=== PATIENT | female | born 1980 | race Two or more races ===

== ENCOUNTER → 2016-06-09 | Outpatient (CLI) | payer OTHER ==
[2016-06-09 11:37] LABS: BASOPHIL % 0.4 % (0-2); PLATELET COUNT 279 x10^3mcL (130-400); RED CELL DISTRIBUTION WIDTH 11.8 % (11.5-14.5)
[2016-06-09 11:38] LABS: UA SPECIFIC GRAVITY 1.025 (1.005-1.035); microscopic required? YES; urine erythrocyte 2+ (NEGATIVE)
[2016-06-09 12:05] LABS: ALBUMIN 3.7 g/dL (3.4-5.0); ALKALINE PHOSPHATASE 109 U/L (46-116); ALT/SGPT 35 U/L (14-59); AST/SGOT 27 U/L (15-37); BILIRUBIN TOTAL 0.33 mg/dL (0.20-1.00); C REACTIVE PROTEIN 0.3 mg/dL (<=0.9); CALCIUM 9.2 mg/dL (8.5-10.1); CARBON DIOXIDE 28.6 mmol/L (21-32); CHLORIDE SERUM 102 mmol/L (98-107); CHOLESTEROL 213 mg/dL (<200); CHOLESTEROL/HDL RATIO 4.8; CREATININE SERUM 0.5 mg/dL (0.6-1.0); FREE T4 1.12 ng/dL (0.76-1.46); GFR1 > 60 mL/min; GLUCOSE SERUM 92 mg/dL (74-106); HDL CHOLESTEROL 44 mg/dL (40-60); POTASSIUM SERUM 3.9 mmol/L (3.5-5.1); SODIUM SERUM 137 mmol/L (136-145); TOTAL PROTEIN, SERUM 8.1 g/dL (6.4-8.2); TRIGLYCERIDES 59 mg/dL (<150)
[2016-06-09 12:16] LABS: T3 TOTAL 1.15 ng/mL
[2016-06-09 12:29] LABS: ERYTHROCYTE SED RATE 31 mm/hr (0-20)
== END | disposition home or self-care (01) ==
LOC: LB 07:27
DX: E03.9 Hypothyroidism, unspecified (principal); E04.9 Nontoxic goiter, unspecified; E11.65 Type 2 diabetes mellitus with hyperglycemia
CPT/HCPCS: 84439; 85613

== ENCOUNTER → 2016-12-14 | Outpatient (CLI) | payer OTHER | END | disposition home or self-care (01) | LOC: LB 11:19 | DX: M32.9 Systemic lupus erythematosus, unspecified (principal) | CPT/HCPCS: 85613; 86225; 86235 ==

== ENCOUNTER 2017-12-06 20:29 | Emergency (ER) | payer OTHER ==
[~2017-12-06] VITALS: Ht 162.6 cm; Wt 71.2 kg
[2017-12-06 22:01] VITALS: BP 101/76
== END 2017-12-06 22:01 | disposition home or self-care (01) ==
LOC: ED 20:29
DX: S61.234A Puncture wound without foreign body of right ring finger without damage to nail, initial encounter (principal); J45.909 Unspecified asthma, uncomplicated; L93.0 Discoid lupus erythematosus; Z88.1 Allergy status to other antibiotic agents; Z88.0 Allergy status to penicillin; W46.0XXA Contact with hypodermic needle, initial encounter; Y93.89 Activity, other specified; Y92.89 Other specified places as the place of occurrence of the external cause; Y99.8 Other external cause status

== ENCOUNTER → 2017-12-23 | Outpatient (CLI) | payer OTHER ==
[2017-12-23 12:20] LABS: microscopic required? YES; urine erythrocyte NEGATIVE (NEGATIVE)
[2017-12-23 12:37] LABS: ALBUMIN 3.4 g/dL (3.4-5.0); ALKALINE PHOSPHATASE 59 U/L (46-116); ALT/SGPT 37 U/L (14-59); AST/SGOT 22 U/L (15-37); CALCIUM 8.6 mg/dL (8.5-10.1); CHLORIDE SERUM 105 mmol/L (98-107); CHOLESTEROL 181 mg/dL (<200); CREATININE SERUM 0.5 mg/dL (0.6-1.0); GFR1 > 60 mL/min; GLUCOSE SERUM 107 mg/dL (74-106); HDL CHOLESTEROL 36 mg/dL (40-60); POTASSIUM SERUM 3.8 mmol/L (3.5-5.1); SODIUM SERUM 140 mmol/L (136-145); TRIGLYCERIDES 77 mg/dL (<150)
[2017-12-23 12:38] LABS: C REACTIVE PROTEIN < 0.2 mg/dL (<=0.9)
[2017-12-23 12:44] LABS: BASOPHIL % 0.4 % (0-2); PLATELET COUNT 194 x10^3mcL (130-400)
[2017-12-23 12:49] LABS: RED CELL DISTRIBUTION WIDTH 11.4 % (11.5-14.5)
== END | disposition home or self-care (01) ==
LOC: LB 10:01
DX: M32.14 Glomerular disease in systemic lupus erythematosus (principal); R73.03 Prediabetes
CPT/HCPCS: 85613

== ENCOUNTER → 2018-05-24 | Outpatient (REF) | LOC: EH 20:21 ==

== ENCOUNTER → 2018-07-28 | Outpatient (CLI) | payer OTHER ==
[2018-07-28 11:12] LABS: BASOPHIL % 0.6 % (0-2); PLATELET COUNT 177 x10^3mcL (130-400); RED CELL DISTRIBUTION WIDTH 11.7 % (11.5-14.5)
[2018-07-28 11:16] LABS: ALBUMIN 3.4 g/dL (3.4-5.0); ALKALINE PHOSPHATASE 69 U/L (46-116); ALT/SGPT 40 U/L (14-59); AST/SGOT 22 U/L (15-37); BILIRUBIN TOTAL 0.2 mg/dL (0.20-1.00); C REACTIVE PROTEIN 0.8 mg/dL (<=0.9); CALCIUM 8.9 mg/dL (8.5-10.1); CARBON DIOXIDE 28.5 mmol/L (21-32); CHLORIDE SERUM 102 mmol/L (98-107); CREATININE SERUM 0.6 mg/dL (0.6-1.0); GFR1 > 60 mL/min; GLUCOSE SERUM 119 mg/dL (74-106); SODIUM SERUM 136 mmol/L (136-145)
[2018-07-28 11:28] LABS: ALBUMIN 3.4 g/dL (3.4-5.0); ALKALINE PHOSPHATASE 70 U/L (46-116); ALT/SGPT 42 U/L (14-59); AST/SGOT 18 U/L (15-37); BILIRUBIN TOTAL 0.3 mg/dL (0.20-1.00); CALCIUM 8.9 mg/dL (8.5-10.1); CARBON DIOXIDE 29.1 mmol/L (21-32); CHLORIDE SERUM 102 mmol/L (98-107); CHOLESTEROL 193 mg/dL (<200); CREATININE SERUM 0.6 mg/dL (0.6-1.0); GFR1 > 60 mL/min; GLUCOSE SERUM 118 mg/dL (74-106); POTASSIUM SERUM 4.1 mmol/L (3.5-5.1); SODIUM SERUM 136 mmol/L (136-145); TRIGLYCERIDES 108 mg/dL (<150)
[2018-07-28 12:17] LABS: BILIRUBIN DIRECT 0.01 mg/dL (0.0-0.2); CHOLESTEROL/HDL RATIO 6.7; HDL CHOLESTEROL 29 mg/dL (40-60)
[2018-07-28 12:46] LABS: ERYTHROCYTE SED RATE 34 mm/hr (0-20)
== END | disposition home or self-care (01) ==
LOC: LB 08:29
DX: M79.7 Fibromyalgia (principal); M32.9 Systemic lupus erythematosus, unspecified; Z79.899 Other long term (current) drug therapy

== ENCOUNTER → 2018-08-01 | Outpatient (CLI) | payer OTHER | END | disposition home or self-care (01) | LOC: LB 17:30 | DX: M79.7 Fibromyalgia (principal); M32.9 Systemic lupus erythematosus, unspecified; Z79.899 Other long term (current) drug therapy | CPT/HCPCS: 86235 ==

== ENCOUNTER → 2019-02-16 | Outpatient (CLI) | payer OTHER ==
[2019-02-16 12:15] LABS: microscopic required? NO
[2019-02-16 12:22] LABS: UA SPECIFIC GRAVITY <=1.005 (1.005-1.035); urine erythrocyte NEGATIVE (NEGATIVE)
[2019-02-16 12:22] LABS: BASOPHIL % 0.5 % (0-2); PLATELET COUNT 251 x10^3mcL (130-400)
[2019-02-16 12:33] LABS: RED CELL DISTRIBUTION WIDTH 11.4 % (11.5-14.5)
[2019-02-16 13:17] LABS: ALBUMIN 3.5 g/dL (3.4-5.0); ALKALINE PHOSPHATASE 78 U/L (46-116); ALT/SGPT 31 U/L (14-59); AST/SGOT 14 U/L (15-37); BILIRUBIN TOTAL 0.34 mg/dL (0.20-1.00); C REACTIVE PROTEIN 0.2 mg/dL (<=0.9); CARBON DIOXIDE 30.5 mmol/L (21-32); CHLORIDE SERUM 99 mmol/L (98-107); CREATININE SERUM 0.6 mg/dL (0.6-1.0); GFR1 > 60 mL/min; GLUCOSE SERUM 100 mg/dL (74-106); HDL CHOLESTEROL 37 mg/dL (40-60); POTASSIUM SERUM 3.7 mmol/L (3.5-5.1); SODIUM SERUM 135 mmol/L (136-145); TOTAL PROTEIN, SERUM 8.1 g/dL (6.4-8.2); TRIGLYCERIDES 133 mg/dL (<150)
[2019-02-16 13:18] LABS: CHOLESTEROL 223 mg/dL (<200)
[2019-02-16 13:36] LABS: ERYTHROCYTE SED RATE 28 mm/hr (0-20)
[2019-02-17 09:08] LABS: COMPLEMENT C3 149 mg/dL (82-167); COMPLEMENT C4 26 mg/dL (14-44)
== END | disposition home or self-care (01) ==
LOC: LB 11:11
DX: Z00.00 Encounter for general adult medical examination without abnormal findings (principal); E11.9 Type 2 diabetes mellitus without complications; M32.9 Systemic lupus erythematosus, unspecified; M79.7 Fibromyalgia; Z79.899 Other long term (current) drug therapy
CPT/HCPCS: 86225

== ENCOUNTER → 2019-03-01 | Outpatient (CLI) | payer OTHER | END | disposition home or self-care (01) | LOC: MA 14:24 | PROC: BH42ZZZ Ultrasonography of Bilateral Breasts (ICD-10-PCS; principal; 2019-03-01) | PROC: BH02ZZZ Plain Radiography of Bilateral Breasts (ICD-10-PCS; 2019-03-01) | DX: Z12.31 Encounter for screening mammogram for malignant neoplasm of breast (principal); N64.4 Mastodynia | CPT/HCPCS: 76641; 77066 ==

== ENCOUNTER → 2019-09-12 | Outpatient (CLI) | payer OTHER ==
[2019-09-12 08:56] LABS: microscopic required? YES; urine erythrocyte NEGATIVE (NEGATIVE)
[2019-09-12 09:19] LABS: ALBUMIN 3.7 g/dL (3.4-5.0); ALKALINE PHOSPHATASE 56 U/L (46-116); ALT/SGPT 29 U/L (14-59); AST/SGOT 20 U/L (15-37); BILIRUBIN TOTAL 0.4 mg/dL (0.20-1.00); C REACTIVE PROTEIN 0.7 mg/dL (<=0.9); CALCIUM 8.7 mg/dL (8.5-10.1); CARBON DIOXIDE 26.4 mmol/L (21-32); CHLORIDE SERUM 101 mmol/L (98-107); CREATININE SERUM 0.7 mg/dL (0.6-1.0); GFR1 > 60 mL/min; GLUCOSE SERUM 112 mg/dL (74-106); HDL CHOLESTEROL 38 mg/dL (40-60); POTASSIUM SERUM 4.1 mmol/L (3.5-5.1); SODIUM SERUM 137 mmol/L (136-145); TOTAL PROTEIN, SERUM 8.2 g/dL (6.4-8.2); TRIGLYCERIDES 79 mg/dL (<150)
[2019-09-12 09:21] LABS: CHOLESTEROL 206 mg/dL (<200); CHOLESTEROL/HDL RATIO 5.4
[2019-09-12 09:28] LABS: BASOPHIL % 0.4 % (0-2); PLATELET COUNT 217 x10^3mcL (130-400); RED CELL DISTRIBUTION WIDTH 11.8 % (11.5-14.5)
== END | disposition home or self-care (01) ==
LOC: LB 06:58 → US 06:58
DX: M06.9 Rheumatoid arthritis, unspecified (principal)

== ENCOUNTER 2020-02-20 18:34 | Emergency (ER) | payer OTHER ==
[~2020-02-20] VITALS: Ht 165.1 cm; Wt 71.7 kg
[2020-02-20 18:51] VITALS: Ht 165.1 cm; Wt 71.7 kg
[2020-02-20 22:16] VITALS: BP 109/78
== END 2020-02-20 22:16 | disposition home or self-care (01) ==
LOC: ED 18:34
DX: T78.40XA Allergy, unspecified, initial encounter (principal); J45.909 Unspecified asthma, uncomplicated; Z88.1 Allergy status to other antibiotic agents; Z88.0 Allergy status to penicillin; X58.XXXA Exposure to other specified factors, initial encounter
CPT/HCPCS: J1100; J1200; J1885; J2405; J7030

== ENCOUNTER 2020-03-03 14:39 | Emergency (ER) | payer OTHER ==
[~2020-03-03] VITALS: Ht 154.9 cm; Wt 70.3 kg
[2020-03-03 15:32] VITALS: Ht 154.9 cm; Wt 70.3 kg
== END 2020-03-03 16:35 | disposition home or self-care (01) ==
LOC: ED 14:39
DX: S60.052A Contusion of left little finger without damage to nail, initial encounter (principal); J45.909 Unspecified asthma, uncomplicated; M32.9 Systemic lupus erythematosus, unspecified; Z88.0 Allergy status to penicillin; Z88.1 Allergy status to other antibiotic agents; W23.0XXA Caught, crushed, jammed, or pinched between moving objects, initial encounter; Y93.89 Activity, other specified; Y92.89 Other specified places as the place of occurrence of the external cause; Y99.8 Other external cause status

== ENCOUNTER → 2020-04-11 | Outpatient (CLI) | payer OTHER ==
[2020-04-11 12:58] LABS: BASOPHIL % 0.7 % (0.2-1.3); PLATELET COUNT 228 x10^3mcL (179-408)
[2020-04-11 13:19] LABS: ALBUMIN 3.9 g/dL (3.4-5.0); ALKALINE PHOSPHATASE 65 U/L (46-116); ALT/SGPT 13 U/L (14-59); AST/SGOT 11 U/L (15-37); BILIRUBIN TOTAL 0.35 mg/dL (0.20-1.00); CARBON DIOXIDE 25.9 mmol/L (21-32); CHLORIDE SERUM 103 mmol/L (98-107); CREATININE SERUM 0.6 mg/dL (0.6-1.0); GFR1 > 60 mL/min; GLUCOSE SERUM 104 mg/dL (74-106); HDL CHOLESTEROL 41 mg/dL (40-60); POTASSIUM SERUM 3.5 mmol/L (3.5-5.1); SODIUM SERUM 137 mmol/L (136-145); TOTAL PROTEIN, SERUM 8.2 g/dL (6.4-8.2); TRIGLYCERIDES 130 mg/dL (<150)
[2020-04-11 13:20] LABS: CHOLESTEROL 209 mg/dL (<200); CHOLESTEROL/HDL RATIO 5.1
[2020-04-11 14:03] LABS: C REACTIVE PROTEIN < 0.2 mg/dL (<=0.9); ERYTHROCYTE SED RATE 17 mm/hr (0-20)
[2020-04-11 14:10] LABS: UA SPECIFIC GRAVITY <=1.005 (1.005-1.035); microscopic required? YES; urine erythrocyte NEGATIVE (NEGATIVE)
[2020-04-12 08:06] LABS: COMPLEMENT C3 145 mg/dL (82-167); COMPLEMENT C4 17 mg/dL (12-38)
== END | disposition home or self-care (01) ==
LOC: LB 12:03
DX: M32.9 Systemic lupus erythematosus, unspecified (principal); R35.0 Frequency of micturition
CPT/HCPCS: 85613

== ENCOUNTER → 2020-04-20 | Outpatient (CLI) | payer OTHER ==
[2020-04-20 12:37] LABS: BASOPHIL % 0.5 % (0.2-1.3); PLATELET COUNT 207 x10^3mcL (179-408); RED CELL DISTRIBUTION WIDTH 12.1 % (12.3-17.7)
[2020-04-20 14:06] LABS: ERYTHROCYTE SED RATE 20 mm/hr (0-20)
[2020-04-21 09:11] LABS: RHEUMATOID ARTHRITIS FACTOR 23.8 IU/mL (0.0-13.9)
== END | disposition home or self-care (01) ==
LOC: US 09:11 → MA 04-24 15:00 → US 05-08 14:00
PROC: BH02ZZZ Plain Radiography of Bilateral Breasts (ICD-10-PCS; principal; 2020-04-20)
PROC: BH41ZZZ Ultrasonography of Left Breast (ICD-10-PCS; 2020-04-20)
PROC: BW40ZZZ Ultrasonography of Abdomen (ICD-10-PCS; 2020-04-20)
DX: R10.9 Unspecified abdominal pain (principal); K76.0 Fatty (change of) liver, not elsewhere classified; M41.9 Scoliosis, unspecified; N63.0 Unspecified lump in unspecified breast; R92.8 Other abnormal and inconclusive findings on diagnostic imaging of breast
CPT/HCPCS: 76642; 77066; 86431